=== PATIENT | female | born 1980 | race Two or more races ===

== ENCOUNTER 2019-12-04 12:04 | Emergency (ER) | payer MEDICARE, MEDICAID ==
[~2019-12-04] VITALS: Ht 165.1 cm; Wt 64.0 kg
[2019-12-04] MEDS ORDERED: TRAMADOL 50MG TABLET PO NR (13:00)
[2019-12-04] MEDS: ONDANSETRON 4MG ODT PO NR ×2 (13:05→14:01)
[2019-12-04] MEDS: GABAPENTIN 300MG CAPSULE PO NR ×2 (13:06→14:01)
[2019-12-04] MEDS ORDERED: OXYCODONE HCL 10MG TABLET SR 12HR PO ONE (14:00)
[2019-12-04 14:01] VITALS: BP 150/125
== END 2019-12-04 14:49 | disposition home or self-care (01) ==
LOC: ER 12:04
DX: G89.29 Other chronic pain (principal); M54.5 Low back pain; Z88.8 Allergy status to other drugs, medicaments and biological substances; Z88.6 Allergy status to analgesic agent; Z98.890 Other specified postprocedural states; Z79.891 Long term (current) use of opiate analgesic
CPT/HCPCS: 99284; Q0162

== ENCOUNTER 2020-09-18 17:31 | Emergency (ER) | payer MEDICARE, MEDICAID ==
[~2020-09-18] VITALS: Ht 167.6 cm; Wt 80.0 kg
[2020-09-18 19:26] VITALS: BP 124/71
[2020-09-18 20:24] LABS: BASOPHILS % 0.1 % (0.0-2.0); EOSINOPHILS % 0.4 % (0.0-5.0); HEMOGLOBIN. 11.4 g/dL (12.0-16.0); LYMPHOCYTES % 13.6 % (20.0-50.0); MEAN CORPUSCULAR HEMOGLOBIN 25.9 pg (28.0-32.0); MEAN CORPUSCULAR VOLUME 79.4 fL (81.0-99.0); MEAN PLATELET VOLUME 6.7 fl (7.4-10.4); MONOCYTES % 7.3 % (2.0-8.0); NEUTROPHILS % 78.6 % (40.0-76.0); PLATELET 369 x1000/uL (130-400); RED CELL DISTRIBUTION WIDTH 17.3 % (11.6-14.6)
[2020-09-18 20:31] LABS: CHLORIDE 105 mEq/L (98-107)
[2020-09-18 20:37] LABS: ETHANOL BLOOD < 10 mg/dL
[2020-09-18 20:39] LABS: HCG SCREEN NEGATIVE
== END 2020-09-18 21:00 | disposition left against medical advice (07) ==
LOC: ER 17:31
DX: R41.82 Altered mental status, unspecified (principal); G43.909 Migraine, unspecified, not intractable, without status migrainosus; Z88.6 Allergy status to analgesic agent; Z88.8 Allergy status to other drugs, medicaments and biological substances
CPT/HCPCS: 36415; 71045; 80053; 80307; 80320; 80329; 84443; 84484; 84703; 85025; 99284; G0480

== ENCOUNTER 2021-09-05 07:31 | Emergency (ER) | payer MEDICARE, MEDICAID ==
[~2021-09-05] VITALS: Ht 167.6 cm; Wt 73.0 kg
[2021-09-05 08:34] VITALS: BP 181/120
== END 2021-09-05 08:34 | disposition home or self-care (01) ==
LOC: ER 07:31
DX: I10 Essential (primary) hypertension (principal); F11.121 Opioid abuse with intoxication delirium; J45.909 Unspecified asthma, uncomplicated; Z91.041 Radiographic dye allergy status; Z98.890 Other specified postprocedural states; Z88.6 Allergy status to analgesic agent; Z86.59 Personal history of other mental and behavioral disorders
CPT/HCPCS: 93005; 99283

== ENCOUNTER 2024-05-02 17:16 | Emergency (ER) | payer MEDICARE, MEDICAID ==
[~2024-05-02] VITALS: Ht 167.6 cm; Wt 69.0 kg
[2024-05-02 17:31] VITALS: BP 129/85; PULSE 74; RESP 16; TEMP 36.8; O2SAT 100
== END 2024-05-02 17:42 | disposition left against medical advice (07) ==
LOC: ER 17:16
DX: R51.9 Headache, unspecified (principal); Z53.21 Procedure and treatment not carried out due to patient leaving prior to being seen by health care provider